=== PATIENT | female | born 1980 | race Caucasian/White ===

== ENCOUNTER → 2022-10-22 10:11 | Outpatient (BNVA) | payer BC, SELFPAY | PROVIDERS: PCP Nurse Practitioner Family; Visit Provider Nurse Practitioner Family | DX: R53.83 Other fatigue (principal); R10.2 Pelvic and perineal pain; Z13.220 Encounter for screening for lipoid disorders | CPT/HCPCS: 80053; 80061; 85025 ==

== ENCOUNTER 2022-12-21 08:58 | Outpatient (CLI) | payer BC, SELFPAY ==
--- NOTE | 2022-12-21 09:30 | US_ITS ---
WS: [id number] ULTRASOUND RIGHT BREAST HISTORY: Follow-up mammogram 11/22/2022. COMPARISON: Mammogram 11/22/2022 TECHNIQUE: 2-D and Doppler. Masses described on the RIGHT mammogram from 11/22/2022 correspond to cysts and mildly complex cysts i n the RIGHT breast at 9:00. Ovoid cyst with the largest measuring 1.0 x 0.4 x 1.3 cm. No solid mass o r shadowing. US/US breast RT limited* [id number] IMPRESSION: BI-RADS: 2-Benign FOLLOW-UP: 1 Year Follow-up
== END 2022-12-21 08:59 | disposition home or self-care (01) ==
LOC: RAD 09:02
PROVIDERS: PCP Nurse Practitioner Family; Visit Provider Nurse Practitioner Women's Health
DX: R92.8 Other abnormal and inconclusive findings on diagnostic imaging of breast (principal)
CPT/HCPCS: 76642; 87624

== ENCOUNTER 2023-01-13 11:48 | Emergency (ER) | payer BC, SELFPAY ==
[2023-01-13 12:14] VITALS: BMI 37.9
[2023-01-13 12:20] VITALS: BP 123/73; PULSE 81; RESP 16; TEMP 36.7; O2SAT 97
--- NOTE | 2023-01-13 12:38 | CT_ITS ---
WS: [id number] CT ABDOMEN AND PELVIS WITH CONTRAST HISTORY: Abdominal pain. TECHNIQUE: Imaging performed of the abdomen and pelvis with IV contrast. Single phase imaging of the abdomen. Coronal and sagittal reformats are submitted. All CT scans at [facility] use at [address] one of these dose optimization techniques: automated exposure control; mA and/or kV adjustment per patient size (includes targeted exams where dose is matched to clinical indication); or iterative re construction. IV CONTRAST: Omnipaque 350; 100 mL IV. Oral contrast: No DLP: 917.23 mGy.cm COMPARISON: None available. Lower thorax: Benign granuloma RIGHT lung base. Heart is normal size. Small hiatal hernia. Liver/biliary system: Normal size with no intrahepatic dilatation. Gallbladder: Status post cholecystectomy. Pancreas: Normal size pancreas and pancreatic duct. No adjacent inflammation. Spleen: Normal size spleen. No mass or infarct. Adrenal glands: Normal. Right kidney: Normal. Left kidney: Normal. Aorta: Normal. Lymphadenopathy: None. Free fluid: None. GI tract: Normal stomach. Beginning in the distal small bowel increasing fluid. No obstructive patter n at this time. Increase fluid extends into the colon to the splenic flexure. The appendix is small. No adjacent inflammation. Abdominal wall: Unremarkable abdominal wall. No hernia. Pelvis: No free fluid or adenopathy within the pelvis. Bones: Unremarkable. CT/CT abdomen pelvis w con* [id number] IMPRESSION: 1. Increased amount of fluid in the mid to distal small bowel extending into t he colon. No wall thickening or obstruction at this time. Consider mild gastroe nteritis. Early obstructive pattern may appear similar. 2. Normal appendix. 3. No free fluid or free air. 4. Prior cholecystectomy.
--- NOTE | 2023-01-13 12:49 | W.ED.ABDPA2 ---
HPI - Abdominal Pain General: Chief Complaint: Abdominal Pain Stated Complaint: Right lower abd pain Time Seen by Provider: 01/13/23 12:36 Source: patient Mode of arrival: ambulatory Limitations: no limitations History of Present Illness: 42-year-old female states she has had right lower quadrant pain over the last 4 to 5 weeks states she had a transvaginal ultrasound that did not show her appendix states she started having worsening pain over the last 4 to 5 days and she is worried about appendicitis states pain is currently 7 out of 10 she had some nausea denies any vomiting denies any dysuria denies any diarrhea. Associated Symptoms: Denies chills, diarrhea, dysuria, fever(s), nausea and vomiting Review of Systems Const: Denies: fever(s) or chills ENMT: Denies: throat pain or dental pain Card: Denies: chest pain Resp: Denies: dyspnea GI: Reports: abdominal pain; Denies: nausea, vomiting or diarrhea : Denies: dysuria Musc: Denies: neck pain or back pain Skin/Breast: Denies: rash PFSH ED PFSH: Medical History Anxiety Cervical abrasion Headache Injury brain, traumatic Tubal Surgical History H/O dilation and curettage History of cholecystectomy Family History Grandmother Cancer Grandfather Cancer Father Cancer SKIN Social History Smoking and tobacco status: current every day smoker Second hand smoke exposure: No Smoking risk assessment/counseling performed?: Yes Tobacco counseling given: provider counseling Alcohol intake: current Alcohol intake frequency: holidays/special occasions only Desire information about alcohol rehabilitation?: No Substance/Drug Use: never Desire information about substance/drug rehabilitation?: No Counseling given: No Adopted: No Caregiver/support person: No Lives independently: Yes Household members: none Marital status: service: No Current occupational exposures/hazards: No Do you think of yourself as: Straight/Heterosexual Current gender identity: Female Physical Exam Const: COMMON NORMALS: no acute distress, patient oriented x3 and healthy appearing HENMT: COMMON NORMALS: normocephalic and atraumatic HEAD & SCALP: normocephalic and atraumatic Neck/C-Spine: COMMON NORMALS: full ROM and supple Chest: COMMONS NORMALS: normal inspection of the chest and normal palpation of entire chest wall Resp: COMMON NORMALS: normal respiratory effort, No retractions, No use of accessory muscles and clear to auscultation bilaterally AUSCULTATION: clear to auscultation bilaterally Cardio: COMMON NORMALS: regular rate, regular rhythm and No murmurs present (Cardio) RATE: regular rate RHYTHM: regular rhythm GI: COMMON NORMALS: Normal to inspection, nondistended, normoactive bowel sounds present, Soft to palpation and no masses PALPATION: Yes Soft to palpation OTHER: lower abd tenderness Extremity: COMMON NORMALS: normal to inspection and full ROM Neuro: COMMON NORMALS: patient oriented x3, moves all extremities and no focal motor deficits Psych: COMMON NORMALS: mental status grossly normal, Normal thought process present and cooperative THOUGHT PROCESS: Normal thought process present Skin: COMMON NORMALS: no rashes or lesions noted and no wounds GENERAL SKIN EXAM: no rashes or lesions noted Course Vital Signs: Vital signs: Vital Signs Temperature 98.1 F 01/13/23 12:20 Pulse Rate 70 01/13/23 14:20 Respiratory Rate 16 01/13/23 14:20 Blood Pressure 113/63 01/13/23 14:20 Pulse Oximetry 95 01/13/23 14:20 Oxygen Delivery Me thod Room Air 01/13/23 14:20 MDM - Abdominal Pain Medical Decision Making 42-year-old female presented here with abdominal pain its been going on for quite some time she is very worried about it is sinus CT scan here shows no acute abnormalities blood work is normal. She stable for discharge we will put her on Bentyl along with Zofran she is to follow-up with her PCP and return if worsening. Medical Records I reviewed the patient's medical records. Lab Data I reviewed the patient's lab results. 01/13/23 12:20 01/13/23 12:20 Labs/Radiology: Radiology Impressions Abdomen/Pelvis CT 01/13/23 12:38 IMPRESSION: 1. Increased amount of fluid in the mid to distal small bowel extending into the colon. No wall thickening or obstruction at this time. Consider mild gastroenteritis. Early obstructive pattern may appear similar. 2. Normal appendix. 3. No free fluid or free air. 4. Prior cholecystectomy. Laboratory Results WBC 6.8 10^3/uL (4.0-10.0) 01/13/23 12:20 RBC 5.48 10^6/uL (4.1-5.3) H 01/13/23 12:20 Hgb 15.8 g/dL (11.5-15.3) H 01/13/23 12:20 Hct 47.7 % (37.0-47.0) H 01/13/23 12:20 MCV 87.0 fl (81-99) 01/13/23 12:20 MCH 28.8 pg (28.0-34.0) 01/13/23 12:20 MCHC 33.1 g/dL (30.0-36.0) 01/13/23 12:20 RDW 12.6 % (12.1-15.1) 01/13/23 12:20 Plt Count 276 10^3/cmm (130-400) 01/13/23 12:20 MPV 11.0 fL (7.4-10.4) H 01/13/23 12:20 Neut % (Auto) 51.0 % 01/13/23 12:20 Lymph % (Auto) 43.1 % 01/13/23 12:20 Humphreys % (Auto) 4.5 % 01/13/23 12:20 Eos % (Auto) 0.7 % 01/13/23 12:20 Baso % (Auto) 0.3 % 01/13/23 12:20 Neut # (Auto) 3.47 10^3/uL (1.8-7.7) 01/13/23 12:20 Lymph # (Auto) 2.9 10^3/uL (0.8-4.8) 01/13/23 12:20 Humphreys # (Auto) 0.3 10^3/uL (0.2-0.9) 01/13/23 12:20 Eos # (Auto) 0.1 10^3/uL (0.0-0.8) 01/13/23 12:20 Baso # (Auto) 0.0 10^3/uL (0.0-0.1) 01/13/23 12:20 Nucleated RBC % (auto) 0 % 01/13/23 12:20 Nucleated RBCs # 0.0 /100WBC 01/13/23 12:20 Sodium 139 mmol/L (136-145) 01/13/23 12:20 Potassium 3.6 mmol/L (3.5-5.1) 01/13/23 12:20 Chloride 101 mmol/L (98-107) 01/13/23 12:20 Carbon Dioxide 27 mmol/L (22-29) 01/13/23 12:20 Anion Gap 14.6 (5-19) 01/13/23 12:20 BUN 10 mg/dL (6-20) 01/13/23 12:20 Creatinine 0.9 mg/dL (0.5-0.9) 01/13/23 12:20 GFR Calculation 69.3 mL/min (90-130) L 01/13/23 12:20 Glucose 97 mg/dL (65-115) 01/13/23 12:20 Calculated Osmolality 287 mOsm/kg (285-295) 01/13/23 12:20 Calcium 9.4 mg/dL (8.5-10.5) 01/13/23 12:20 Total Bilirubin 0.3 mg/dL (0.15-1.2) 01/13/23 12:20 AST 15 U/L (0-32) 01/13/23 12:20 ALT 12 U/L (0-33) 01/13/23 12:20 Alkaline Phosphatase 49 U/L (35-105) 01/13/23 12:20 Total Protein 7.8 g/dL (6.6-8.7) 01/13/23 12:20 Albumin 4.4 g/dL (3.5-5.2) 01/13/23 12:20 Globulin 3.4 g/dL (1.3-4.6) 01/13/23 12:20 Lipase 21 U/L (13-60) 01/13/23 12:20 HCG, Qual Negative (Negative) 01/13/23 12:20 Urine Color Yellow (Yellow) 01/13/23 12:47 Urine Appearance Clear (CLEAR) 01/13/23 12:47 Urine pH 5 (5-7) 01/13/23 12:47 Ur Specific [place] 1.015 (1.005-1.030) 01/13/23 12:47 Urine Protein Neg (Negative) 01/13/23 12:47 Urine Glucose (UA) Norm (Normal) 01/13/23 12:47 Urine Ketones Negative (Negative) 01/13/23 12:47 Urine Blood Neg (Negative) 01/13/23 12:47 Urine Nitrate Negative (Negative) 01/13/23 12:47 Urine Bilirubin Neg (Negative) 01/13/23 12:47 Urine Urobilinogen Norm mg/dL (Negative) 01/13/23 12:47 Ur Leukocyte Esterase Negative (Negative) 01/13/23 12:47 Discharge Plan Discharge Patient Disposition: Home Clinical Impression: Abdominal pain Qualifiers: Abdominal location: unspecified location Qualified Code(s): R10.9 - Unspecified abdominal pain Condition: Stable Prescriptions: New ondansetron 4 mg tablet,disintegrating 4 mg PO Q6H PRN (Reason: nausea and vomiting) Qty: 14 0RF dicyclomine 20 mg tablet 20 mg PO BID PRN (Reason: abdominal pain) Qty: 20 0RF No Action Multiple Vitamin-Minerals Tablet 1 tab PO DAILY kjcpavn-zdoj-nvvbo-oreg-capryl 100 mg-150 mg- 50 mg-150 mg capsule 1 cap PO DAILY cranberry 400 mg Capsule 400 mg PO DAILY Rx Instructions: administer with a meal Calcium 600 + Minerals 600 mg calcium- 200 unit Tablet 1 tab PO DAILY Xlear Nasal [place] 2 spray NOSTRIL-B PRN PRN (Reason: Congestion) Discharge Orders: Discharge ED (Routine); Ordered 01/13/23 Ordered By: Leland Diaz Referrals: Suzan Olmedo FNP [Primary Care Provider] - 1-3 days Discharge Diet: Advance as tolerated Discharge Activity: Resume usual activity Patient Instructions: Abdominal Pain (ED) Coding Level of Care Code 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
[2023-01-13 12:50] LABS: Basophils % 0.3 %; Eosinophils # 0.1 10^3/uL (0.0-0.8); Eosinophils % 0.7 %; Hematocrit 47.7 % (37.0-47.0); Hemoglobin 15.8 g/dL (11.5-15.3); Lymphocytes # 2.9 10^3/uL (0.8-4.8); Lymphocytes % 43.1 %; Mean Corpuscular HGB Conc 33.1 g/dL (30.0-36.0); Mean Corpuscular Hemoglobin 28.8 pg (28.0-34.0); Monocytes # 0.3 10^3/uL (0.2-0.9); Monocytes % 4.5 %; Neutrophils # 3.47 10^3/uL (1.8-7.7); Nucleated Red Blood Cells % 0 %; Platelet Count 276 10^3/cmm (130-400); Red Blood Count 5.48 10^6/uL (4.1-5.3); Red Cell Distribution Width 12.6 % (12.1-15.1); White Blood Count 6.8 10^3/uL (4.0-10.0)
[2023-01-13 12:56] LABS: Alanine Aminotransferase 12 U/L (0-33); Albumin Level 4.4 g/dL (3.5-5.2); Alkaline Phosphatase 49 U/L (35-105); Anion Gap 14.6 (5-19); Aspartate Amino Transferase 15 U/L (0-32); Blood Urea Nitrogen 10 mg/dL (6-20); Calcium 9.4 mg/dL (8.5-10.5); Carbon Dioxide 27 mmol/L (22-29); Chloride 101 mmol/L (98-107); Globulin 3.4 g/dL (1.3-4.6); Glomerular Filtration Rate 69.3 mL/min (90-130); Glucose 97 mg/dL (65-115); Lipase 21 U/L (13-60); Osmolality Calculated 287 mOsm/kg (285-295); Potassium 3.6 mmol/L (3.5-5.1); Sodium 139 mmol/L (136-145); Total Bilirubin 0.3 mg/dL (0.15-1.2); Total Protein 7.8 g/dL (6.6-8.7)
[2023-01-13] MEDS: ondansetron 2 mg/ML SDV 2 mL 4 MG IVP (12:59)
[2023-01-13] MEDS: morphine 4 mg/mL SDV 1 mL IVP (12:59)
[2023-01-13 13:01] VITALS: BP 93/55; PULSE 82; RESP 16; O2SAT 96
[2023-01-13 13:10] LABS: Add Urine Microscopic? NO; Charge for UA Resulting for Rev
[2023-01-13 13:11] LABS: HCG, Serum Qual Negative (Negative)
[2023-01-13 13:15] LABS: Bilirubin Urine Neg (Negative); Blood Urine Neg (Negative); Glucose Urine UA Norm (Normal); Ketones Urine Negative (Negative); Leukocyte Esterase Urine Negative (Negative); Nitrate Urine Negative (Negative); Protein Urine Neg (Negative); Specific Gravity, Urine 1.015 (1.005-1.030); Urine Appearance Clear (CLEAR); Urine Color Yellow (Yellow); Urobilinogen Urine Norm (Negative); pH Urine 5 (5-7)
[2023-01-13] MEDS: iohexol 350 mg/mL 500 mL Btl (per mL) IV (13:58)
[2023-01-13 14:20] VITALS: BP 113/63; PULSE 70; RESP 16; O2SAT 95
[2023-01-13 14:33] VITALS: BP 113/63; PULSE 73; RESP 16; O2SAT 96
== END 2023-01-13 14:34 | disposition home or self-care (01) ==
PROVIDERS: Emergency Provider Emergency Medicine; PCP Nurse Practitioner Family
DX: R10.31 Right lower quadrant pain (principal); F17.210 Nicotine dependence, cigarettes, uncomplicated
CPT/HCPCS: 36415; 74177; 80053; 81003; 83690; 84703; 85025; 96374; 96375; 99284; J2270; J2405; Q9967

== ENCOUNTER 2023-02-11 06:18 | Day surgery (SDC) | payer BC, SELFPAY ==
[2023-02-10 10:44] VITALS: BMI 37.9
[2023-02-11 06:31] VITALS: BP 116/78; PULSE 69; RESP 17; TEMP 36.3; O2SAT 95
[2023-02-11] MEDS: sodium chloride 0.9% 1,000 ML 30 ML IV (06:43)
[2023-02-11 06:51] LABS: OR HCG Qualitative Urine Negative (Negative)
--- NOTE | 2023-02-11 07:02 | ANES.PREANE2 ---
Pre-Anesthetic Assessment Height/Weight: Height 1.68 m Weight 106.594 kg Temp Pulse Resp BP Pulse Ox O2 Del Method 97.4 F L 69 17 116/78 95 Room Air 02/11/23 06:31 02/11/23 06:31 02/11/23 06:31 02/11/23 06:31 02/11/23 06:31 02/11/23 06:31 Operation Date: 02/11/23 07:30 Proposed Procedures p Colonoscopy 45931, R10.9, K59.00(Not Applicable) - Robbie De La Fuente DO Familial anesthetic complications: none Was Beta Lyly taken within 24 hours: N/A Was Clonidine taken within 24 hours: N/A Last intake: Intake Last Liquid Date 02/10/23 Last Liquid Time 23:45 Last Solid Date 02/09/23 Social No alcohol and No tobacco Exam alert, oriented x 3, clear to auscultation bilaterally and regular rate & rhythm Airway Mallampati: Class II Dentition: full and other (fake front tooth) Metabolic Morbid Obesity Anesthetic Plan ASA status: 2 Risk of > 500 ml blood loss (7ml/kg in children): No Medications/Allergies Home Medications Medication Instructions Recorded Confirmed Last Taken Type multivitamin with minerals 1 tab PO DAILY 10/22/22 02/11/23 02/09/23 History (Multiple Vitamin-Minerals tablet) tumeric 100 mg-solomon 150 mg-olive 1 cap PO DAILY 10/22/22 02/11/23 02/09/23 History 50 mg-oreg 150 mg-caprylate capsule Xlear Nasal [place] 2 spray NOSTRIL-B PRN PRN 01/13/23 02/11/23 01/13/23 History Congestion calcium carb-vit D3-minerals 600 1 tab PO DAILY 01/13/23 02/11/23 02/09/23 History mg calcium-200 unit tablet (Calcium 600 + Minerals) cranberry 400 mg capsule 400 mg PO DAILY 01/13/23 02/11/23 02/09/23 History ondansetron 4 mg disintegrating 4 mg PO Q6H PRN nausea and 01/13/23 02/11/23 Unknown Rx tablet vomiting #14 tabs Allergies Allergy/AdvReac Type Severity Reaction Status Date / Time No Known Allergies Allergy Verified 02/11/23 06:31 Current Medications Generic Name Dose Route Start Last Admin Trade Name Freq PRN Reason Stop Dose Admin Sodium Chloride 1,000 mls @ 30 mls/hr 02/11/23 06:30 02/11/23 06:43 Sodium Chloride 0.9% IV 02/12/23 06:29 30 mls/hr .Q24H THU Administration PFSH Anesthesia Medical History Anxiety Cervical abrasion Headache Injury brain, traumatic Tubal Surgical History H/O dilation and curettage History of cholecystectomy Family History Grandmother Cancer Grandfather Cancer Father Cancer SKIN Social History Smoking and tobacco status: current every day smoker Second hand smoke exposure: No Smoking risk assessment/counseling performed?: Yes Tobacco counseling given: provider counseling Alcohol intake: current Alcohol intake frequency: holidays/special occasions only Desire information about alcohol rehabilitation?: No Substance/Drug Use: never Desire information about substance/drug rehabilitation?: No Counseling given: No Adopted: No Caregiver/support person: No Lives independently: Yes Household members: none Marital status: service: No Current occupational exposures/hazards: No Do you think of yourself as: Straight/Heterosexual Current gender identity: Female Female Reproductive History Date of last menstrual period: 11/16/22 Data Anesthesia Cardiac Studies: No Data to Display
--- NOTE | 2023-02-11 07:49 | W.PM.OPSUD ---
Surgery/Procedure H&P Update DATE OF PROCEDURE: February 11, 2023 DATE H&P PERFORMED: 02/09/23 H&P UPDATE INFORMATION: I have reviewed H&P completed within last 30 days, I have examined patient prior to procedure and No changes to prior documentation PLANNED PROCEDURE: Operation Date: 02/11/23 07:30 Proposed Procedures p Colonoscopy 66860, R10.9, K59.00(Not Applicable) - Robbie De La Fuente, DO
[2023-02-11 08:23] VITALS: BP 105/67; PULSE 67; RESP 18; TEMP 36.1; O2SAT 95
[2023-02-11 08:53] VITALS: BP 136/91; PULSE 61; RESP 18; O2SAT 98
--- NOTE | 2023-02-11 09:33 | ANE.PACU2 ---
Inpatient post-anesthesia follow up: Airway intact: Yes Vital signs: Temperature 97 F Pulse Rate 61 Respiratory Rate 18 Blood Pressure 136/91 Pulse Oximetry 98 Oxygen Delivery Me thod Room Air Oxygen Flow Rate Fraction of Inspir ed Oxygen Hydration adequate: Yes Nausea and vomiting: No Pain level: 1 Mental status: Baseline
== END 2023-02-11 09:55 | disposition home or self-care (01) ==
PROVIDERS: Anesthesiology; PCP Nurse Practitioner Family; Visit Provider Surgery
PROC: 0DJD8ZZ Inspection of Lower Intestinal Tract, Via Natural or Artificial Opening Endoscopic (ICD-10-PCS; CPT 45378; principal; 2023-02-11 07:30)
DX: R10.9 Unspecified abdominal pain (principal); K59.00 Constipation, unspecified; K63.5 Polyp of colon; E66.01 Morbid (severe) obesity due to excess calories; Z68.37 Body mass index [BMI] 37.0-37.9, adult; F17.200 Nicotine dependence, unspecified, uncomplicated
CPT/HCPCS: 45380; 45385; 84703; 88305; J2704; J7030

== ENCOUNTER → 2023-03-07 08:55 | Outpatient (BNVA) | payer BC, SELFPAY | PROVIDERS: PCP Nurse Practitioner Family; Visit Provider Nurse Practitioner Family | DX: N92.6 Irregular menstruation, unspecified (principal) | CPT/HCPCS: 81025 ==

== ENCOUNTER → 2024-05-24 11:15 | Outpatient (BNVA) | payer BC, SELFPAY | PROVIDERS: PCP Nurse Practitioner Family; Visit Provider Nurse Practitioner Family | DX: R10.9 Unspecified abdominal pain (principal) | CPT/HCPCS: 80053; 81000; 85025 ==

== ENCOUNTER → 2024-07-19 12:59 | Outpatient (BNVA) | payer BC, SELFPAY | PROVIDERS: PCP Nurse Practitioner Family; Referring Provider Nurse Practitioner Family; Visit Provider Internal Medicine | DX: E27.8 Other specified disorders of adrenal gland (principal); R10.9 Unspecified abdominal pain; G89.29 Other chronic pain; E27.9 Disorder of adrenal gland, unspecified; Z79.899 Other long term (current) drug therapy | CPT/HCPCS: 36415; 80053; 82088; 82627; 82670; 83001; 83002; 84144; 84146; 84244; 84403 ==

== ENCOUNTER 2024-07-23 16:09 | Outpatient (CLI) | payer BC, SELFPAY ==
--- NOTE | 2024-07-23 16:15 | USR_ITS ---
PROCEDURE INFORMATION: Exam: US Pelvis Transabdominal, Limited, and US Pelvis Transvaginal, Non-Obstetric Exam date and time: 07/23/2024 4:20 PM Age: 44 years old Clinical indication: pelvic and perineal pain TECHNIQUE: Imaging protocol: Real-time transabdominal and transvaginal pelvic ultrasound (non-obstetric) with image documentation. Transabdominal imaging is limited. Transvaginal imaging was used for better evaluation of the endometrium, adnexa, and/or cervix. COMPARISON: US pelv w/transvag [id number] 11/18/2022 1:17 PM FINDINGS: Uterus: Uterus measures 6.9 x 2.6 x 3.6 cm. There is a heterogeneous predominantly hypoechoic lesion in the posterior lower uterine segment myometrium exiting into the endometrial cavity measuring 1.3 x 1.2 x 1.2 cm, consistent with a submucosal fibroid. Cystic lesion with mild internal complexity in the cervical region measures 0.7 x 0.7 x 0.5 cm. This likely represents a complex nabothian cyst. Right ovary/adnexa: Right ovary not visualized secondary to overlying bowel gas. Left ovary/adnexa: Left ovary measures 3.8 x 3.6 x 2.7 cm. There is a cyst with low-level internal echoes in the left ovary measuring 3.5 x 3.4 x 2.3 cm consistent with a hemorrhagic cyst. Urinary bladder: Urinary bladder is limited. Intraperitoneal space: No free fluid. US/US pelvis lmt w transvag IMPRESSION: 1. 3.5 cm hemorrhagic cyst in the left ovary. Follow-up not needed. 2. 1.3 cm submucosal uterine fibroid. 3. There is a 0.7 cm cyst with some internal complexity in the cervix likely representing a complex nabothian cyst.
== END 2024-07-23 16:10 | disposition home or self-care (01) ==
LOC: RAD 16:10
PROVIDERS: PCP Nurse Practitioner Family; Visit Provider Nurse Practitioner Family
DX: N83.202 Unspecified ovarian cyst, left side (principal); D25.9 Leiomyoma of uterus, unspecified; N88.8 Other specified noninflammatory disorders of cervix uteri
CPT/HCPCS: 76830; 76857

== ENCOUNTER 2024-08-09 14:33 | Outpatient (CLI) | payer BC, SELFPAY ==
--- NOTE | 2024-08-09 14:41 | MM_ITS ---
WS: [id number] BILATERAL 3D TOMOSYNTHESIS DIGITAL DIAGNOSTIC MAMMOGRAPHY WITH CAD CLINICAL INFORMATION: BILATERAL BREAST LUMPS HISTORY: Bilateral breast lumps COMPARISON: 2022 outside studies and prior ultrasound TECHNIQUE: Bilateral CC, MLO, and ML views. FINDINGS: The breasts are composed of heterogeneous nodular fibroglandular density, which can limit the detecti on of small underlying mass lesions. Numerous palpable markers RIGHT greater than LEFT breast. Ultras ound of these areas pending. Spot magnification views of the punctate calcifications along the posterior nipple line LEFT breast. Spot magnification views of these calcifications demonstrates heterogeneous density cluster calcifica tions in a ductal pattern. Calcifications have a suspicious appearance and recommend further evaluati on with ultrasound-guided biopsy. ULTRASOUND BREAST BILATERAL TECHNIQUE: Ultrasound bilateral breast focused area of concern. CLINICAL INFORMATION: BILATERAL BREAST LUMPS FINDINGS: RIGHT BREAST: Ultrasound RIGHT breast areas of concern. Tiny simple cyst at the 8 o'clock position pa tient directed measuring 5 mm 3 cm from the nipple. Small cyst at the 8 o'clock position 6 cm from th e nipple measuring 8 mm. No other abnormalities in the RIGHT breast. LEFT BREAST: Ultrasound LEFT breast areas of concern. Simple cyst at the 4 o'clock position 4 cm from the nipple measuring 7 mm. No other abnormalities in the LEFT breast. Dense underlying parenchymal t issue visualized. No suspicious ultrasound abnormalities in the areas of palpable concern bilaterally. MM/MM diag BI tomosynthesis [id number] IMPRESSION: DENSITY: The breasts are heterogeneously dense, which may obscure small masses. BI-RADS: 4 - Suspicious Finding - Biopsy Should Be Considered FOLLOW UP: Stereotactic Biopsy Recommended Recommend Stereotactic Guided Biopsy of the Suspicious Calcifications Subareola r LEFT Breast.
--- NOTE | 2024-08-09 15:00 | US_ITS ---
WS: [id number] BILATERAL 3D TOMOSYNTHESIS DIGITAL DIAGNOSTIC MAMMOGRAPHY WITH CAD CLINICAL INFORMATION: BILATERAL BREAST LUMPS HISTORY: Bilateral breast lumps COMPARISON: 2022 outside studies and prior ultrasound TECHNIQUE: Bilateral CC, MLO, and ML views. FINDINGS: The breasts are composed of heterogeneous nodular fibroglandular density, which can limit the detecti on of small underlying mass lesions. Numerous palpable markers RIGHT greater than LEFT breast. Ultras ound of these areas pending. Spot magnification views of the punctate calcifications along the posterior nipple line LEFT breast. Spot magnification views of these calcifications demonstrates heterogeneous density cluster calcifica tions in a ductal pattern. Calcifications have a suspicious appearance and recommend further evaluati on with ultrasound-guided biopsy. ULTRASOUND BREAST BILATERAL TECHNIQUE: Ultrasound bilateral breast focused area of concern. CLINICAL INFORMATION: BILATERAL BREAST LUMPS FINDINGS: RIGHT BREAST: Ultrasound RIGHT breast areas of concern. Tiny simple cyst at the 8 o'clock position pa tient directed measuring 5 mm 3 cm from the nipple. Small cyst at the 8 o'clock position 6 cm from th e nipple measuring 8 mm. No other abnormalities in the RIGHT breast. LEFT BREAST: Ultrasound LEFT breast areas of concern. Simple cyst at the 4 o'clock position 4 cm from the nipple measuring 7 mm. No other abnormalities in the LEFT breast. Dense underlying parenchymal t issue visualized. No suspicious ultrasound abnormalities in the areas of palpable concern bilaterally. US/US breast BI complete [id number] IMPRESSION: DENSITY: The breasts are heterogeneously dense, which may obscure small masses. BI-RADS: 4 - Suspicious Finding - Biopsy Should Be Considered FOLLOW UP: Stereotactic Biopsy Recommended Recommend Stereotactic Guided Biopsy of the Suspicious Calcifications Subareola r LEFT Breast.
[2024-08-09 15:23] LABS: Urine Creatinine 59 mg/dL (28-217)
[2024-08-09 15:27] LABS: Creatinine 24 Hour Urine 1433.7 mg/dL (601-1689); Total Volume Urine 2430 ml
== END 2024-08-09 14:34 | disposition home or self-care (01) ==
PROVIDERS: Absent Provider Internal Medicine; PCP Nurse Practitioner Family; Visit Provider Nurse Practitioner Family
DX: N60.11 Diffuse cystic mastopathy of right breast (principal); N60.02 Solitary cyst of left breast; E27.8 Other specified disorders of adrenal gland; R10.9 Unspecified abdominal pain; G89.29 Other chronic pain; E27.9 Disorder of adrenal gland, unspecified; R92.333 Mammographic heterogeneous density, bilateral breasts
CPT/HCPCS: 76641; 77062; 82384; 82530; 82570; 83835; G0279

== ENCOUNTER 2024-09-04 12:47 | Outpatient (CLI) | payer OTHER, SELFPAY ==
--- NOTE | 2024-09-04 12:50 | MM_ITS ---
WS: [id number] STEREOTACTIC LEFT BREAST BIOPSY WITH VACUUM ASSISTANCE. History: Heterogeneous LEFT breast calcifications. Biopsy recommended for suspicious calcifications. Procedure, risks, and complications were discussed the patient who agreed to proceed. Prior imaging w as reviewed. Cluster of calcifications within the left breast are localized. Stereotactic imaging was performed. P atient was prepped and draped in usual sterile fashion. After 1% lidocaine, calcifications were targe dameon stereotactically in the LEFT breast. Small incision was made. Needle advanced into the cluster of calcifications LEFT breast with imaging demonstrating appropriate position relative to the calcifica tions. Multiple vacuum-assisted core biopsies were obtained. Postprocedure imaging demonstrates calci fications within the biopsy specimen. The biopsy cavity was lavaged. Titanium clip was placed at the biopsy site. Postprocedure imaging dem onstrates clip in good position. No immediate complications. Note patient initially experienced a vasovagal reaction after the initial lidocaine injection. Vitals remained stable and patient elected to continue the procedure a few minutes later without complicati on. Note the stereotactic localization breast images did not save properly. Specimen images and post clip placement mammogram images are available. MM/[place] [id number] IMPRESSION: 1. Uncomplicated vacuum-assisted stereotactic biopsy of calcifications in the LEFT breast. PATHOLOGY: 1. Fibrocystic changes including fibrosis and sclerosing adenosis, ductal ect pernell, and focal apocrine change. 2. Focal columnar cell ductal change without atypia 3. Intraductal calcifications are identified. 4. Some fragments demonstrate features suggestive of remote hyalinized fibroep ithelial lesion. 5. No evidence of malignancy. BI-RADS 2 benign Recommend annual screen mammography.
--- NOTE | 2024-09-04 13:00 | MM_ITS ---
WS: [id number] STEREOTACTIC LEFT BREAST BIOPSY WITH VACUUM ASSISTANCE. History: Heterogeneous LEFT breast calcifications. Biopsy recommended for suspicious calcifications. Procedure, risks, and complications were discussed the patient who agreed to proceed. Prior imaging w as reviewed. Cluster of calcifications within the left breast are localized. Stereotactic imaging was performed. P atient was prepped and draped in usual sterile fashion. After 1% lidocaine, calcifications were targe dameon stereotactically in the LEFT breast. Small incision was made. Needle advanced into the cluster of calcifications LEFT breast with imaging demonstrating appropriate position relative to the calcifica tions. Multiple vacuum-assisted core biopsies were obtained. Postprocedure imaging demonstrates calci fications within the biopsy specimen. The biopsy cavity was lavaged. Titanium clip was placed at the biopsy site. Postprocedure imaging dem onstrates clip in good position. No immediate complications. Note patient initially experienced a vasovagal reaction after the initial lidocaine injection. Vitals remained stable and patient elected to continue the procedure a few minutes later without complicati on. Note the stereotactic localization breast images did not save properly. Specimen images and post clip placement mammogram images are available. MM/[place] [id number] IMPRESSION: 1. Uncomplicated vacuum-assisted stereotactic biopsy of calcifications in the LEFT breast. PATHOLOGY: 1. Fibrocystic changes including fibrosis and sclerosing adenosis, ductal ect pernell, and focal apocrine change. 2. Focal columnar cell ductal change without atypia 3. Intraductal calcifications are identified. 4. Some fragments demonstrate features suggestive of remote hyalinized fibroep ithelial lesion. 5. No evidence of malignancy. BI-RADS 2 benign Recommend annual screen mammography.
== END 2024-09-04 12:48 | disposition home or self-care (01) ==
LOC: RAD 12:47
PROVIDERS: PCP Nurse Practitioner Family; Visit Provider Nurse Practitioner Family
DX: R92.8 Other abnormal and inconclusive findings on diagnostic imaging of breast (principal); N60.32 Fibrosclerosis of left breast; N60.22 Fibroadenosis of left breast; N60.42 Mammary duct ectasia of left breast
CPT/HCPCS: 19081; 77065; 88305